=== PATIENT | female | born 1955 | race Caucasian/White ===

== ENCOUNTER → 2016-12-01 | Day surgery (SDC) | payer OTHER ==
[2016-11-29 10:09] VITALS: Ht 165.1 cm; Wt 54.5 kg
[~2016-12-01] VITALS: Ht 165.1 cm; Wt 54.5 kg
[~2016-12-01] MED LIST: ASCO1CHW17 PO; CALC500T83 PO; CHOL100010 PO; CYAN10005 PO; GABA400C PO; IBUP-1459 PO; IOPAMIDOL INJ 61% 15 ML VIAL ONE; LIDOCAINE HCL 1% MPF 5 ML VIAL ONE; METH-307 PO; OMEG10007 PO; SODIUM CHLORIDE 0.9% INJ 10 ML VIAL ONE; TRAM-10 PO
--- NOTE | 2016-12-01 14:01 | History & Physical Bridge - [place] ---
H&P Re-Evaluation Bridge Note: I have examined the patient, reviewed the History & Physical and in the interval since the performance of the History & Physical I have noted the following changes of clinical significance: No changes noted
[2016-12-01 14:23] VITALS: TEMP 36.5
--- NOTE | 2016-12-01 14:32 | Discharge Instructions ---
Discharge Instructions Date of Service Dec 01, 2016. Visit Reason for Visit: Lumbar Radiculopathy Discharge Discharge Diagnosis / Problem: L4 radiculopathies Discharge Goals Goal(s): Decrease discomfort, Improve function Activity Recommendations Activity Limitations: resume your previous activity Anesthesia . Post Anesthesia Instructions: If you have had General Anesthesia or IV Sedation: * Do not drive today. * Resume driving when surgeon permits. * Do not make important decisions or sign legal documents today. * Call surgeon for: 1. Temperature elevations greater than 101 degrees F. 2. Uncontrollable pain. 3. Excessive bleeding. 4. Persistent nausea and vomiting. 5. Medication intolerance (nausea, vomiting or rash). * For nausea and vomiting use only clear liquids such as: tea, soda, bouillon until nausea subsides, then gradually increase diet as tolerated. * If you have any concerns or questions, call your surgeon's office. If physician is unavailable and it is an emergency, call 911 or go to the nearest emergency room. . Diet Recommendations Recommended Home Diet: no limitations Procedures Procedures Performed: Lumbar Epidural Steroid Injection Pending Studies Studies pending at discharge: no Medical Emergencies . Who to Call and When: Medical Emergencies: If at any time you feel your situation is an emergency, please call 911 immediately. . Non-Emergent Contact Non-Emergency issues call your: Specialist . . "Provider Documentation" section prepared by Brent Lucero.
[2016-12-01 14:33] VITALS: BP 148/83; PULSE 72; O2SAT 97
--- NOTE | 2016-12-01 15:44 | OPERATIVE REPORT ---
DATE OF OPERATION: 12/01/2016 PREOPERATIVE DIAGNOSIS: L3-L4 disk disease with left greater than right lower extremity radiculopathy. POSTOPERATIVE DIAGNOSIS: Same. PROCEDURE: Left paramedian L3-L4 intralaminar epidural steroid injection under fluoroscopic guidance. INDICATIONS: The patient is a 61-year-old white female who presents today for an epidural injection. She has received these in the past with good results. Her pain has been problematic to her and functionally limiting, particularly into the legs, distal to the knees and down into the anterior spencer area, little bit worse on the left than the right, but there is bilateral component and she presents for an epidural injection. PHYSICAL EXAMINATION: GENERAL: Pleasant female seated comfortably. MUSCULOSKELETAL: Lumbar paraspinal muscles were palpated and noted to be nontender. She had no issues with forward flexion or extension. She had normal lower extremity strength. Negative seated straight leg raises. She had no subjective sensation changes. CONSENT: Verbal and written consent was obtained from the patient. Risks and benefits were reviewed. Risks include, but are not limited to epidural abscess, epidural hematoma, allergic reaction, and dural puncture. She wishes to proceed. DESCRIPTION OF PROCEDURE: The patient was taken back to the special procedures room of the [facility], where she was maintained in a prone position. Backside was cleansed with Betadine x3 and a dry sterile dressing was applied. Fluoroscope was used to identify the L3-L4 intralaminar space. Overlying skin on the left was anesthetized with 4 mL of lidocaine 1% with a 25-gauge 1.5-inch needle. A 22-gauge 3.5-inch Tuohy needle was then directed down towards the intralaminar space. Loss of resistance was noted at a depth of 4.5 cm. Isovue-300 contrast 1 mL was injected in, which demonstrated epidural uptake pattern, which was confirmed with both AP and lateral views. She then underwent injection after negative aspiration of 40 mg of Depo-Medrol and 4 mL preservative free sodium chloride. Injection was well tolerated. DISPOSITION: 1. The patient is taken out into the discharge recovery area, where she will be discharged home once discharge criteria have been met. 2. Follow up in the [facility] office in 2-4 weeks or as needed. I attest to the content of the Intraoperative Record and any orders documented therein. Any exceptio ns are noted below.
== END | disposition home or self-care (01) ==
LOC: X.SURG 13:32
PROVIDERS: ATTEND Physical Medicine & Rehabilitation
DX: M54.16 Radiculopathy, lumbar region (principal); M51.36 Other intervertebral disc degeneration, lumbar region; M17.9 Osteoarthritis of knee, unspecified; M47.812 Spondylosis without myelopathy or radiculopathy, cervical region; Z88.5 Allergy status to narcotic agent